=== PATIENT | male | born 1975 | race Caucasian/White ===

== ENCOUNTER 2023-11-17 08:00 | Emergency (ER) | payer OTHER, SELFPAY ==
[2023-11-17] VITALS (7 sets, daily range): BP systolic 138–164; BP diastolic 89–112; PULSE 72–88; RESP 16–19; TEMP 36.7; O2SAT 95–99; BMI 28.0
--- NOTE | ~2023-11-17 | CT_ITS ---
EXAMINATION: CT HEAD WITHOUT CONTRAST (STROKE PROTOCOL) CLINICAL INFORMATION: Stroke protocol. Severe headache, dizziness. COMPARISON: None available. TECHNIQUE: Contiguous axial imaging was performed from the skull base to vertex without intravenous administration of contrast. This CT examination was performed using dose optimization techniques as appropriate, variously including the following: *Automated exposure control *Adjustment of mA and/or kV according to patient size (this includes techniques or standardized protocols for targeted exams where dose is matched to indication/reason for exam; i.e. extremities or head) *Use of iterative reconstruction technique DLP: 782 mGy-cm FINDINGS: Acute hyperdense subdural hematoma overlies the right cerebral hemisphere. This measures up to 1.1 to 1.2 cm maximum thickness, causes effacement of underlying sulci of the cerebral hemisphere, effacement of the right lateral ventricle, and there is 1.2 cm of midline shift from [id number]. The smith-white matter differentiation is maintained. No evidence of an acute major vascular territory infarction. The calvarium is intact. The mastoid air cells and visualized paranasal sinuses are well aerated. The orbits, globes and temporomandibular joints are unremarkable. CT/CT head for stroke IMPRESSION: * There is an acute right-sided bolus hemispheric subdural hematoma that causes subfalcine herniation. * No evidence of an acute major vascular territory infarction. This critical result was discussed with Tg Hamilton at 8:18 AM on 11/17/2023. It was ascertained that the content and urgency of the report was understood at the time of direct communication.
--- NOTE | ~2023-11-17 | CT_ITS ---
EXAMINATION: CTA OF THE HEAD AND NECK CLINICAL INFORMATION: Bleed with shift. Evaluate for aneurysm. COMPARISON: Head CT from 11/17/2023. TECHNIQUE: Test bolus sequences followed by intravenous administration 100 mL of Ultravist. Helical imaging was performed in the axial plane from the mediastinum to the skull vertex. Delayed postcontrast imaging of the head was also performed. The data was processed at the medical technologist prn's workstation for generation of MIP sequences. Three-dimensional volume rendered reformatted images were also generated at an offline 3-D workstation. Stenoses are assessed in accordance with NASCET criteria unless otherwise indicated. This CT examination was performed using dose optimization techniques as appropriate, variously including the following: *Automated exposure control *Adjustment of mA and/or kV according to patient size (this includes techniques or standardized protocols for targeted exams where dose is matched to indication/reason for exam; i.e. extremities or head) *Use of iterative reconstruction technique DLP: mGy-cm. FINDINGS: CT head: Stable right-sided holohemispheric subdural hematoma with mass effect, sulcal effacement, and a 1 cm leftward midline shift of structures. The subdural hematoma is stable in morphology, measuring up to 1 cm in short axis transverse dimension on coronal imaging. No abnormal enhancement identified. No acute territorial infarction visible. Right-sided uncal herniation again noted with distortion of the midbrain. Mild transtentorial herniation evident with partial effacement of the suprasellar cistern, as on the recent noncontrast head CT exam. The right lateral ventricle and third ventricle are subtotally effaced, as on the prior study. Prominence of the posterior body and trigone of the left lateral ventricle remains stable. The fourth ventricle is normal in size. There are chronic fatty atrophic changes of the left parotid gland. CTA neck: The imaged aortic arch and origins of the great vessels are normal. Mild eccentric atheromatous disease is visible along the [place] of the common carotid arteries without significant stenosis. Similar mild atherosclerotic disease present at the carotid bifurcations with mild wall calcifications. There is an approximate 50% focal stenosis in the cervical right internal carotid artery distal to the carotid bulb. Otherwise, no significant stenosis is visible in the carotid vasculature. The vertebral arteries opacify normally and are of normal caliber. The soft tissues of the neck are unremarkable. The imaged portions of the lungs are relatively clear with mild subsegmental atelectatic changes. Mild lower cervical spondylosis noted. CTA head: The intradural vertebral arteries and basilar artery are normal. The posterior cerebral arteries are widely patent. The internal carotid arteries are of normal caliber. The JUSTINE and MCA vascular complexes bilaterally are normal. No underlying vascular malformation or aneurysm identified. The venous sinuses opacify normally. CT/CT angio head neck stroke IMPRESSION: Stable right-sided holohemispheric subdural hematoma with mass effect and midline shift as described. No abnormal enhancement. No aneurysm or vascular malformation identified. No subarachnoid blood products. In the absence of hypertension, trauma, blood thinner medications or a known bleeding diathesis, consider follow-up neurointerventional radiology consultation for a potential conventional angiogram in order to rule out the possibility of an underlying subtle dural fistula. Atherosclerotic disease with a 50% stenosis in the proximal cervical right internal carotid artery. Otherwise, no hemodynamically significant stenosis or occlusion in the cervical or intracranial vasculature at the level of the [place] of [place]. Imaging findings reported to Dr. Hamilton at 9:32 AM on 11/17/2023.
--- NOTE | 2023-11-17 08:05 | ECG_ITS ---
Test Reason : headache Blood Pressure : / mmHG Vent. Rate : 077 BPM Atrial Rate : 077 BPM P-R Int : 182 ms QRS Dur : 096 ms QT Int : 352 ms P-R-T Axes : 065 024 000 degrees QTc Int : 398 ms Normal sinus rhythm Nonspecific T wave abnormality Abnormal ECG When compared with ECG of 02-APR-2002 06:40, Inverted T waves have replaced nonspecific T wave abnormality in Inferior leads Referred By: Tg Hamilton Electronically Signed By:JASON JAVED MD
--- NOTE | 2023-11-17 08:08 | ED_ITS ---
HPI - Headache General Chief Complaint: Headache Stated Complaint: STROKE ALERT,NEW ONSET DIZZY,LONG @ 10PM PER EMS Time Seen by Provider: 11/17/23 08:05 Source: patient and EMS Mode of arrival: EMS Limitations: no limitations History of Present Illness ED Provider: NOEL MEDINA Narrative: 48 yo male with PMH of HTN compliant with medications, not on thinners, no recent falls or trauma was eating dinner outside last night while camping at 10pm sudden severe onset headache with a pop this has never happened before. He denies any recent trauma, neck manipulation. He does not get headaches. This AM it was worse with nausea and he feels clammy. No numbness, weakness, confusion. He called 911. MD elicited complaint: headache Onset (ago): day(s) (10pm yesterday ) Onset description: suddenly Location: right and diffuse Severity: severe Quality & Timing: throbbing Exacerbating factors: exertion Relieving factors: nothing Context: occurred at rest Associated symptoms: nausea, malaise and lightheadedness Treatments prior to arrival: none Related Data Allergies Allergy/AdvReac Type Severity Reaction Status Date / Time No Known Allergies Allergy Mild N/A Verified 11/17/23 08:30 Review of Systems 2 Review of Systems: Constitutional : No Fever, No Chills, No Fatigue, pos sweats ENT/Mouth : No sore throat, No Rhinorrhea Eyes: No Eye Pain, No Swelling, No Redness Cardiovascular : No Chest Pain, No SOB, No Dyspnea on Exertion Respiratory : No Cough, No Sputum Gastrointestinal : pos Nausea, No Vomiting, No Diarrhea, No abdominal Pain Genitourinary : No Dysuria, No Urinary Frequency, No Hematuria, Musculoskeletal : No joint pain, No Myalgias, No Joint Swelling Skin : No Skin Lesions, No rash Neuro : No Weakness, No Numbness, No Dizziness, positive Headache Psych : No Anxiety/Panic, No Depression Heme/Lymph: No Bruising, No Bleeding,No Lymphadenopathy Endocrine : No Polyuria, No Polydipsia All other systems reviewed and are negative [facility] Past Medical History Attestation statement: The following information was validated with the patient. Medical History HTN (hypertension) Social History Social History Patient Tobacco Use Status: Never used Tobacco Advance Directives: No Advance Directives Information Provided: No Do you have a plan to hurt others: No Plan Physical Exam 2 Vital Signs: Vital Signs: Last Vital Signs Temp 98.1 F 11/17/23 11:39 Pulse 78 11/17/23 11:39 Resp 16 11/17/23 11:39 BP 162/101 H 11/17/23 11:39 Pulse Ox 95 11/17/23 11:39 O2 Del Method Room Air 11/17/23 11:39 BMI result Body Mass Index 28.0 Appearance: Alert. Oriented X3. anxious uncomfortable mild acute distress. Eyes: Pupils equal, round and reactive to light. ENT: Pharynx normal. Neck: Normal inspection. Neck supple. CVS: Normal heart rate and rhythm. Pulses normal. Respiratory: No respiratory distress. Breath sounds normal. Abdomen: Soft and nontender. Skin: Skin warm and dry. Normal skin color. Normal skin turgor. Extremities: No lower extremity edema. No calf ttp Neuro: Oriented X 3. No motor deficit. No sensory deficit. NIH Stroke Scale Internal: Initial- Upon Arrival Level of Consciousness: Alert Level of Consciousness Questions: Answers both questions correctly Level of Consciousness Commands: Performs both tasks correctly Best Gaze: Normal Visual: No visual loss Facial Palsy: Normal Motor Arm (Right): No drift Motor Arm (Left): No drift Motor Leg (Right): No drift Motor Leg (Left): No drift Limb Ataxia: Absent Sensory: Normal Best Language: No aphasia Dysarthia: Normal Extinction and Inattention: No abnormality Score: 0 Course Course Course Narrative: patient told us he felt a pop last night prior to all of us this so I sent him in for CTA call back from [facility] 852am plan needs tranfer for neuro checks repeat CT scan 12 hours or sooner if he decompensates if he has aneurysm that will need neurocritical care which is different service and neuro ICU will call back once CTA done. Reevaluation(s) Reevaluation #1: call to [facility] 933am will page hospitalist Reevaluation #2: GCS 15 still NPO since arrival did eat breakfast accepted after discussion with Ynes mcfadden hospitalist Dr. Mariela DELGADO will call with bed 943am Medications Administered Discontinued Medications Generic Name Dose Route Start Last Admin Trade Name Freq PRN Reason Stop Dose Admin Sodium Chloride 1,000 mls @ 999 mls/hr 11/17/23 08:05 11/17/23 09:39 Ns IV 11/17/23 09:05 Infused .Q1H1M ONE Infusion Levetiracetam 500 mg in 100 mls @ 400 mls/hr 11/17/23 08:29 11/17/23 09:20 Keppra IV 11/17/23 08:43 Infused ONCE ONE Infusion Iohexol 100 ml 11/17/23 09:04 11/17/23 09:04 Iohexol 350 Mg/Ml 100 Ml Infus..Btl IV 11/17/23 09:05 70 ml ONCE ONE Administration Morphine Sulfate 4 mg 11/17/23 08:05 11/17/23 08:39 Morphine Sulfate 4 Mg/Ml Cartridge IVPUSH 11/17/23 08:06 4 mg ONCE ONE Administration Protocol Morphine Sulfate 4 mg 11/17/23 09:52 11/17/23 10:20 Morphine Sulfate 4 Mg/Ml Cartridge IVPUSH 4 mg Q2H PRN Administration Pain, Moderate(Pain Scale 4-6) Protocol Ondansetron HCl 4 mg 11/17/23 08:05 11/17/23 08:39 Ondansetron Hcl 4 Mg/2 Ml Vial IVPUSH 11/17/23 08:06 4 mg ONCE ONE Administration Medical Decision Making Medical Decision Making [facility] Narrative: 48 yo male with PMH of HTN reports compliance with medications was outside eating food last night camping around 10pm sudden onset of severe headache has not felt well since has never felt like this before sweaty nauseated and clammy no focal deficits on exam GCS 15 on arrival not on thinners - STAT CT head for ICH, IV line, IV zofran and morphine elevated head of bed. Denies any recent trauma, neck manipulation, triggering strenuous event. Differential Diagnosis Differential Diagnoses: The differential diagnosis associated with the presentation includes SAH, ICH, viral syndrome, acute headache Admission/Observation Consideration of admission/observation: Escalation of care including admission/observation considered call to [facility] 818am Consult Healthcare Provider Management of the patient was discussed with: Netsuite Consultant Óscar Torrez - Neurosurgery aware at 828am states he will get back to me plans to follow up with his attending Lab Data [facility] Lab Attestation statement: I reviewed the patient's lab results. 11/17/23 08:26 11/17/23 08:26 Labs: Lab Results 11/17/23 Range/Units 08:26 WBC 8.9 (4.8-10.8) X10*3/uL RBC 5.37 (4.60-5.80) X10*6/uL Hgb 16.5 (14.0-18.0) g/dl Hct 47.9 (42.0-52.0) % MCV 89.2 (80.0-98.0) fL MCH 30.7 (27.0-33.0) pg MCHC 34.4 (31.0-36.0) g/dl RDW 13.9 (11.0-16.0) % Plt Count 194 (160-400) X10*3/uL MPV 10.1 (9.4-12.4) fL Immature Gran % (Auto) 0.6 H (0.0-0.4) % Neut % (Auto) 75.5 H (45-73) % Lymph % (Auto) 13.9 L (20-40) % [place] % (Auto) 8.5 (2-11) % Eos % (Auto) 1.1 (0-4) % Baso % (Auto) 0.4 (0-2) % Lymph # (Auto) 1.2 (1.2-4.9) X10*3/uL [place] # (Auto) 0.8 (0.1-1.2) X10*3/uL Eos # (Auto) 0.1 (0.0-0.4) X10*3/uL Baso # (Auto) 0.0 (0.0-0.2) X10*3/uL Abs Immat Gran (auto) 0.05 H (0.00-0.03) X10*3/uL Absolute Neuts (auto) 6.7 (2.0-8.3) x10*3/uL Absolute Nucleated RBC 0.000 (0.0-0.012) X10*3/uL Nucleated RBC % (auto) 0.0 (0.0-0.2) /100WBC PT 11.4 (11.1-13.3) SEC INR 0.9 (0.9-1.1) Sodium 140 (135-145) mmol/L Potassium 3.8 (3.3-5.1) mmol/L Chloride 106 (96-108) mmol/L Carbon Dioxide 25 (22-29) mmol/L Anion Gap 13 (12-20) BUN 10 (9-16) mg/dL Creatinine 1.15 (0.5-1.4) mg/dL Estim Creat Clear Calc 88.6 Estimated GFR > 60 Random Glucose 151 H (60-115) mg/dL Calcium 8.7 (8.4-10.2) mg/dL Magnesium 2.1 (1.6-2.6) mg/dL Total Bilirubin 0.7 (0.0-1.0) mg/dL Direct Bilirubin 0.2 (0.0-0.5) mg/dL AST 29 (5-37) U/L ALT 58 H (0-40) U/L Alkaline Phosphatase 30 L (39-117) U/L Troponin I High Sens 2.7 (<3.5-35.0) ng/L Total Protein 7.1 (6.5-8.0) g/dL Albumin 4.1 (3.5-5.0) g/dL Lipase 118 H (8-78) U/L Independent Interpretation I performed an independent interpretation of an: EKG and CT Scan (ICH) Interpretation: Rate: 77 Rhythm: NSR [place]: normal Normal P waves. Normal MAIRA. Normal QRS complex. ST T wave : no TATY, normal qTC: 398 prior studies: The study has been interpreted contemporaneously by me. . FINDINGS: Acute hyperdense subdural hematoma overlies the right cerebral hemisphere. This measures up to 1.1 to 1.2 cm maximum thickness, causes effacement of underlying sulci of the cerebral hemisphere, effacement of the right lateral ventricle, and there is 1.2 cm of midline shift from [id number]. The smith-white matter differentiation is maintained. No evidence of an acute major vascular territory infarction. The calvarium is intact. The mastoid air cells and visualized paranasal sinuses are well aerated. The orbits, globes and temporomandibular joints are unremarkable. CT/CT head for stroke IMPRESSION: * There is an acute right-sided bolus hemispheric subdural hematoma that causes subfalcine herniation. * No evidence of an acute major vascular territory infarction. CT head: Stable right-sided holohemispheric subdural hematoma with mass effect, sulcal effacement, and a 1 cm leftward midline shift of structures. The subdural hematoma is stable in morphology, measuring up to 1 cm in short axis transverse dimension on coronal imaging. No abnormal enhancement identified. No acute territorial infarction visible. Right-sided uncal herniation again noted with distortion of the midbrain. Mild transtentorial herniation evident with partial effacement of the suprasellar cistern, as on the recent noncontrast head CT exam. The right lateral ventricle and third ventricle are subtotally effaced, as on the prior study. Prominence of the posterior body and trigone of the left lateral ventricle remains stable. The fourth ventricle is normal in size. There are chronic fatty atrophic changes of the left parotid gland. CTA neck: The imaged aortic arch and origins of the great vessels are normal. Mild eccentric atheromatous disease is visible along the boyer of the common carotid arteries without significant stenosis. Similar mild atherosclerotic disease present at the carotid bifurcations with mild wall calcifications. There is an approximate 50% focal stenosis in the cervical right internal carotid artery distal to the carotid bulb. Otherwise, no significant stenosis is visible in the carotid vasculature. The vertebral arteries opacify normally and are of normal caliber. The soft tissues of the neck are unremarkable. The imaged portions of the lungs are relatively clear with mild subsegmental atelectatic changes. Mild lower cervical spondylosis noted. CTA head: The intradural vertebral arteries and basilar artery are normal. The posterior cerebral arteries are widely patent. The internal carotid arteries are of normal caliber. The JUSTINE and MCA vascular complexes bilaterally are normal. No underlying vascular malformation or aneurysm identified. The venous sinuses opacify normally. CT/CT angio head neck stroke IMPRESSION: Stable right-sided holohemispheric subdural hematoma with mass effect and midline shift as described. No abnormal enhancement. No aneurysm or vascular malformation identified. No subarachnoid blood products. In the absence of hypertension, trauma, blood thinner medications or a known bleeding diathesis, consider follow-up neurointerventional radiology consultation for a potential conventional angiogram in order to rule out the possibility of an underlying subtle dural fistula. Atherosclerotic disease with a 50% stenosis in the proximal cervical right internal carotid artery. Otherwise, no hemodynamically significant stenosis or occlusion in the cervical or intracranial vasculature at the level of the [place]. Radiology Impression Discussion of test interpretation with radiology: I discussed test interpretation with the radiologist and I have reviewed the radiologist's reading. Radiologist Impression: 817am + SDH acute 1.1cm shift from R to left + no infarct 932am stable SDH no aneurysm, no vascular malformation Independent Historian Clinical information obtained from an independent historian. History obtained from or confirmed by: Spouse and EMS Critical Care Time Critical Care Time Critical Care Time: Yes Total Critical Care Time: 60 Attestation: consults, stroke protocol, repeat assessments, bedside discussion, family discussion, transfer I attest to this time spent taking care of the patient Discharge Plan Discharge Clinical Impression: SDH (subdural hematoma) Patient Disposition: [facility] Transfer Details: [facility], [facility], ROOM 22A, RN TO RN: [phone] Referrals: Leah Vides MD [Physician] - Interventions: Acute Care Transfer Worksheet (ED) Last Done: 11/17/23 11:39 Discharge Date/Time: 11/17/23 11:44 Print Language: Welsh
--- NOTE | 2023-11-17 08:18 | PC.NURSE ---
Pt. is in room and on monitoring tech at this time.
[2023-11-17 08:29] LABS: MANUAL DIFF FLAG NO
[2023-11-17 08:31] LABS: Basophils Percent Auto 0.4 % (0-2); Eosinophils Absolute Auto 0.1 X10*3/uL (0.0-0.4); Eosinophils Percent Auto 1.1 % (0-4); Hematocrit 47.9 % (42.0-52.0); Hemoglobin 16.5 g/dl (14.0-18.0); Imm Gran Abs Auto 0.05 X10*3/uL (0.00-0.03); Imm Gran Pct Auto 0.6 % (0.0-0.4); Lymphocytes Absolute Auto 1.2 X10*3/uL (1.2-4.9); Lymphocytes Percent Auto 13.9 % (20-40); Mean Corpuscular HGB Conc 34.4 g/dl (31.0-36.0); Mean Corpuscular Hemoglobin 30.7 pg (27.0-33.0); Mean Corpuscular Volume 89.2 fL (80.0-98.0); Mean Platelet Volume 10.1 fL (9.4-12.4); Monocytes Absolute Auto 0.8 X10*3/uL (0.1-1.2); Monocytes Percent Auto 8.5 % (2-11); Neutrophils Absolute Auto 6.7 x10*3/uL (2.0-8.3); Neutrophils Percent Auto 75.5 % (45-73); Platelet Count 194 X10*3/uL (160-400); Red Blood Count 5.37 X10*6/uL (4.60-5.80); Red Cell Distribution Width 13.9 % (11.0-16.0); White Blood Count 8.9 X10*3/uL (4.8-10.8)
[2023-11-17] MEDS: 0.9 % Sodium Chloride 1,000 ML 999 ML IV (08:36)
[2023-11-17 08:39] LABS: INTERNATIONAL NORM RATIO 0.9 (0.9-1.1); Prothrombin Time 11.4 SEC (11.1-13.3)
[2023-11-17] MEDS: levETIRAcetam in NaCl (iso-os) 500 MG/100 ML PIGGYBACK 400 MG IV (08:39)
[2023-11-17] MEDS: ondansetron HCL 4 MG/2 ML VIAL IVPUSH (08:39)
[2023-11-17] MEDS: Morphine Sulfate 4 MG/ML CARTRIDGE IVPUSH ×2 (08:39→10:20)
[2023-11-17 08:51] LABS: Alanine Aminotransferase 58 U/L (0-40); Albumin Level 4.1 g/dL (3.5-5.0); Alkaline Phosphatase 30 U/L (39-117); Anion Gap 13 (12-20); Aspartate Amino Transferase 29 U/L (5-37); Bilirubin Direct 0.2 mg/dL (0.0-0.5); Bilirubin Total 0.7 mg/dL (0.0-1.0); Blood Urea Nitrogen 10 mg/dL (9-16); Calcium 8.7 mg/dL (8.4-10.2); Carbon Dioxide 25 mmol/L (22-29); Chloride 106 mmol/L (96-108); Creatinine Clr Calc Pharmacy 88.6; Estimated Glomerular Filt Rate > 60; Glucose Random 151 mg/dL (60-115); Lipase 118 U/L (8-78); Magnesium 2.1 mg/dL (1.6-2.6); Potassium 3.8 mmol/L (3.3-5.1); Sodium 140 mmol/L (135-145); Total Protein 7.1 g/dL (6.5-8.0)
--- NOTE | 2023-11-17 08:55 | PC.NURSE ---
Per Leonardo Hamilton, DO, do not hang Nicardipine gtt at this time.
[2023-11-17 08:59] LABS: Troponin-I High Sensitivity 2.7 ng/L (<3.5-35.0)
[2023-11-17] MEDS: iohexoL 350 MG/ML 100 ML INFUS..BTL IV (09:04)
--- NOTE | 2023-11-17 09:08 | PC.NURSE ---
Pt. returned from CTA and is back on monitoring analyst. VSS. Head pain is rated as a 5/10 at this time. Family at bedside
--- NOTE | 2023-11-17 09:35 | MHC.STROKE ---
Notified of stroke protocol in the ED. Pt awake, alert and oriented x 3. NIH score done by Dr. Hamilton. Score 0. Answering questions appropriately. Pt anxious, asking multiple questions to staff. Mother at bedside. Pt reports that at approximately 2200 last night, he felt a pop in his head and had an immediate headache. He reports it felt like a migraine headache . Pt did not seek medical attention and went to bed. Pt woke this am and still did not feel right . EMS notified and brought patient to ED. Pt called in as a stroke alert. CTH completed which showed a right subdural hematoma with a 1.1cm right to left shift. Dr. Hamilton in contact with [facility]. It was decided to do a CTA. Pt will be transferred to [facility] for continued neuro checks. Location of the transfer will depend on the results of CTA. Pt and family updated on plan.
--- NOTE | 2023-11-17 09:41 | MHC.STROKE ---
Discussed with primary RN - patient to be NPO at this time.
--- NOTE | 2023-11-17 09:53 | PC.NURSE ---
Leonardo Hamilton aware of pain scale - awaiting addtnl. pain meds. at this time.
--- NOTE | 2023-11-17 10:31 | PC.NURSE ---
patient medicated for 8/10 head pain, patient is alert and oriented x4, neuros intact, pupils perrla, equal marketing information analyst strengths
[2023-11-18 11:20] LABS: Lyme Abs Screen <0.90 index
[2023-11-18 22:24] LABS: A. Phagocytphilium DNA,RT-PCR NOT DETECTED (NOT DETECTED); Babesia Microti DNA, RT-PCR NOT DETECTED (NOT DETECTED); Borrelia Miyamotoi,DNA RT-PCR NOT DETECTED (NOT DETECTED); E.Chaffeensis DNA RT-PCR NOT DETECTED (NOT DETECTED); Lyme(Borrelia ssp)DNA RT-PCR NOT DETECTED (NOT DETECTED)
== END 2023-11-17 11:44 | disposition short-term general hospital (02) ==
PROVIDERS: Emergency Provider Emergency Medicine
DX: I62.00 Nontraumatic subdural hemorrhage, unspecified (principal); R40.2410 Glasgow coma scale score 13-15, unspecified time; R11.0 Nausea; R42 Dizziness and giddiness; R53.81 Other malaise; R51.9 Headache, unspecified; I10 Essential (primary) hypertension; R94.31 Abnormal electrocardiogram [ECG] [EKG]; Z79.899 Other long term (current) drug therapy
CPT/HCPCS: 36415; 70450; 70496; 70498; 80048; 80076; 83690; 83735; 84484; 85025; 85610; 86617; 86618; 87468; 87469; 87478; 87484; 87798; 93005; 96361; 96374; 96375; 96376; 99285; J1953; J2270; J2405; Q9967

== ENCOUNTER → 2023-11-17 08:05 | Outpatient (BNV) | payer OTHER, SELFPAY | PROVIDERS: Emergency Provider Emergency Medicine; Visit Provider Internal Medicine Cardiovascular Disease | DX: R51.9 Headache, unspecified (principal) | CPT/HCPCS: 93010 ==